=== PATIENT | female | born 1960 | race Caucasian/White ===

== ENCOUNTER 2017-07-11 22:38 | Emergency (ER) | payer BC, OTHER ==
[~2017-07-11] VITALS: Ht 172.7 cm; Wt 96.3 kg
[~2017-07-11 22:38] MED LIST: CEPH-419 PO; HYDR1TAB PO; METH-603 PO; MULT-785 PO; OMEP-84 PO; OXYC-658 PO
[2017-07-11 23:02] VITALS: BP 118/82
[2017-07-11] MEDS ORDERED: cyclobenzaprine 10mg tablet PO ONE (23:50)
[2017-07-11] MEDS ORDERED: CYCL-1 PO (23:57)
== END 2017-07-12 00:17 | disposition home or self-care (01) ==
LOC: ER 22:39
DX: S13.4XXA Sprain of ligaments of cervical spine, initial encounter (principal); S70.01XA Contusion of right hip, initial encounter; F17.200 Nicotine dependence, unspecified, uncomplicated; Z88.5 Allergy status to narcotic agent; Z88.6 Allergy status to analgesic agent; Z88.1 Allergy status to other antibiotic agents; Z91.040 Latex allergy status; V49.40XA Driver injured in collision with unspecified motor vehicles in traffic accident, initial encounter; Y93.89 Activity, other specified; Y92.410 Unspecified street and highway as the place of occurrence of the external cause; Y99.8 Other external cause status
CPT/HCPCS: 73502; 99284

== ENCOUNTER → 2018-05-09 | Outpatient (CLI) | payer MEDICARE, OTHER ==
[~2018-05-09] MED LIST changes: +CYCL-1 PO
== END | disposition home or self-care (01) ==
LOC: CARD DIAG 12:41
PROVIDERS: ATTEND Family Medicine
DX: I08.3 Combined rheumatic disorders of mitral, aortic and tricuspid valves (principal); F17.200 Nicotine dependence, unspecified, uncomplicated; Z82.49 Family history of ischemic heart disease and other diseases of the circulatory system; Z79.899 Other long term (current) drug therapy
CPT/HCPCS: 93306

== ENCOUNTER 2022-02-05 16:49 | Emergency (ER) | payer MEDICARE, OTHER ==
[~2022-02-05] VITALS: Ht 172.7 cm; Wt 88.6 kg
[2022-02-05] MEDS ORDERED: TRAM50TA2 PO (18:50)
[2022-02-05] MEDS ORDERED: BUPR1FIL20 (18:50)
[2022-02-05] MEDS ORDERED: CYAN10007 IM (18:50)
[2022-02-05] MEDS ORDERED: DOXYCYCLINE 100MG CAPSULE PO STA (18:56)
[2022-02-05] MEDS ORDERED: CEPH250T PO (18:58)
[2022-02-05] MEDS ORDERED: DOXY100C77 PO (18:58)
[2022-02-05] MEDS ORDERED: cephalexin 250mg capsule PO ONE (19:00)
[2022-02-05 19:17] VITALS: BP 136/78
== END 2022-02-05 19:18 | disposition home or self-care (01) ==
LOC: ER 16:50
DX: L03.116 Cellulitis of left lower limb (principal); L03.115 Cellulitis of right lower limb; R60.9 Edema, unspecified; R11.0 Nausea; Z98.890 Other specified postprocedural states; Z88.1 Allergy status to other antibiotic agents; Z88.5 Allergy status to narcotic agent; Z88.6 Allergy status to analgesic agent; Z79.2 Long term (current) use of antibiotics; Z91.040 Latex allergy status; Z79.899 Other long term (current) drug therapy
CPT/HCPCS: 99284